=== PATIENT | male | born 1995 ===

== ENCOUNTER 2019-09-26 21:27 | Inpatient (IN) | payer MEDICAID ==
[~2019-09-26] VITALS: Ht 188 cm; Wt 72.4 kg
[2019-09-26] MEDS ORDERED: ZOLPIDEM TARTRATE 10 MG TABLET PO PRN (22:00)
[2019-09-26 22:05] VITALS: BP 132/84
[2019-09-26] MEDS ORDERED: OLAN7.5T2 PO (23:16)
[2019-09-27 00:43] VITALS: BP 112/78
[2019-09-27] MEDS ORDERED: INFLUENZA VIRUS VACCINE QVS 2019-20 (3YR+)/PF 60 MCG/0.5 ML SYRINGE IM ONE (00:45)
[2019-09-27 08:07] LABS: BASOPHILS % (AUTO) 0.8 % (0.0-2.0); EOSINOPHILS % (AUTO) 4.4 % (1.0-6.0); HEMOGLOBIN 13.5 g/dL (13.5-17.5); LYMPHOCYTES # (AUTO) 1.3 K/uL (1.0-4.8); LYMPHOCYTES % (AUTO) 38.3 % (22.0-44.0); MEAN CORPUSCULAR HGB CONC 33.9 G/dL (31.0-37.0); MEAN CORPUSCULAR VOLUME 89 fL (80-100); MONOCYTES # (AUTO) 0.4 K/uL (0.1-1.0); MONOCYTES % (AUTO) 11.5 % (2.0-9.0); NEUTROPHILS # (AUTO) 1.6 K/uL (1.8-7.7); PLATELET COUNT (AUTO) 211 K/uL (150-450); RED BLOOD CELL COUNT(AUTO) 4.52 MIL/uL (4.50-5.90); RED CELL DISTRIBUTION WIDTH 13.3 % (11.5-14.5)
[2019-09-27 08:18] LABS: HEMOGLOBIN A1C 5.4 % (4.5-6.2)
[2019-09-27 08:45] VITALS: BP 135/83
[2019-09-27 09:30] LABS: ALANINE AMINOTRANSFERASE 27 U/L (12-78); ALBUMIN 3.7 g/dL (3.4-5.0); ALKALINE PHOSPHATASE 88 U/L (46-116); ANION GAP 8 mmol/L (8-16); ASPARTATE AMINOTRANSFERASE 23 U/L (15-37); BILIRUBIN,TOTAL 0.4 mg/dL (0.1-1.0); CALCIUM, TOTAL 8.5 mg/dL (8.8-10.5); CARBON DIOXIDE 26 mmol/L (22-29); CHLORIDE 105 mmol/L (98-107); CHOL/HDL RATIO 2.7 (4.2-7.3); CHOLESTEROL 78 mg/dL (131-200); CREATININE 0.86 mg/dL (0.60-1.30); FREE T4 (FREE THYROXINE) 1.03 ng/dL (0.76-1.46); GLOMERULAR FILTR. RATE CALC > 60 mL/min (>60); GLUCOSE,RANDOM 88 mg/dL (70-110); HDL CHOLESTEROL 29 mg/dL (40-60); LDL CHOL (CALC.) 43 mg/dL (0-130); POTASSIUM 4.6 mmol/L (3.5-5.1); SODIUM SERUM 139 mmol/L (136-145); THYROID STIMULATING HORMONE 0.26 uIU/mL (0.36-3.74); TRIGLYCERIDES 31 mg/dL (15-150); UREA NITROGEN, BLOOD 13 mg/dL (7-18)
[2019-09-27] MEDS: LORazepam 2 MG TABLET PO PRN (09:49)
[2019-09-27] MEDS: OLANZapine 5 MG RAPDIS TABLET PO PRN (09:50)
[2019-09-27] MEDS ORDERED: MAG HYDROX/AL HYDROX/SIMETH ES 30 ML SUSPENSION UDCUP PO PRN (13:30)
[2019-09-27] MEDS ORDERED: TUBERCULIN, PURIFIED PROTEIN DERIVATIVE 5 TU/0.1 ML SYRINGE ID ONE (13:30)
[2019-09-27] MEDS ORDERED: MAGNESIUM HYDROXIDE SUSPENSION 30 ML UDCUP PO PRN (13:30)
[2019-09-27] MEDS ORDERED: LOPERAMIDE HCL 2 MG CAPSULE PO PRN (13:30)
[2019-09-27] MEDS ORDERED: HydrOXYzine PAMOATE 50 MG CAPSULE PO PRN (13:30)
[2019-09-27] MEDS ORDERED: PROMETHAZINE HCL 25 MG TABLET PO PRN (13:30)
[2019-09-27] MEDS ORDERED: GuaiFENesin/D-METHORPHAN [SUGAR-FREE] 200-20MG/10 ML SYRUP UDCUP PO PRN (13:30)
[2019-09-27] MEDS ORDERED: ACETAMINOPHEN 325 MG TABLET PO PRN (13:30)
[2019-09-27] MEDS ORDERED: BISACODYL 5 MG EC TABLET PO PRN (15:30)
[2019-09-27 16:00] VITALS: BP 120/64
[2019-09-27] MEDS: THIAMINE HCL 100 MG TABLET PO SCH (16:56)
[2019-09-27] MEDS: OLANZapine 10 MG TABLET PO SCH (20:28)
[2019-09-27] MEDS: DIVALPROEX SODIUM 500 MG ER TABLET PO SCH (20:28)
[2019-09-27] MEDS ORDERED: OLANZapine 7.5 MG TABLET PO SCH ×2 (21:00)
[2019-09-28 00:23] VITALS: BP 136/73
[2019-09-28] MEDS: LORazepam 2 MG TABLET PO PRN ×3 (03:03→16:40)
[2019-09-28] MEDS: OLANZapine 5 MG RAPDIS TABLET PO PRN ×2 (03:03→08:38)
[2019-09-28 08:05] VITALS: BP 140/91
[2019-09-28 08:06] LABS: HEMOGLOBIN A1C 5.4 % (4.5-6.2)
[2019-09-28 08:10] LABS: CHOL/HDL RATIO 2.9 (4.2-7.3); FREE T4 (FREE THYROXINE) 0.88 ng/dL (0.76-1.46); THYROID STIMULATING HORMONE 0.53 uIU/mL (0.36-3.74)
[2019-09-28] MEDS: NALTREXONE HCL 50 MG TABLET PO SCH (08:37)
[2019-09-28] MEDS: MULTIVITAMINS WITH MINERALS, THERAPEUTIC TABLET PO SCH (08:37)
[2019-09-28] MEDS: FOLIC ACID 1 MG TABLET PO SCH (08:37)
[2019-09-28] MEDS: THIAMINE HCL 100 MG TABLET PO SCH ×2 (08:38→16:40)
[2019-09-28] MEDS ORDERED: NALTREXONE HCL 50 MG TABLET PO SCH (09:00)
[2019-09-28 16:40] VITALS: BP 124/73
[2019-09-28] MEDS ORDERED: NALT50TA PO (17:03)
[2019-09-28] MEDS ORDERED: OLAN10TA20 PO (17:03)
[2019-09-28] MEDS ORDERED: DIVA500T52 PO (17:03)
[2019-09-28] MEDS: OLANZapine 10 MG TABLET PO SCH (20:47)
[2019-09-28] MEDS: DIVALPROEX SODIUM 500 MG ER TABLET PO SCH (20:47)
[2019-09-29 03:04] VITALS: BP 126/84
[2019-09-29 08:23] VITALS: BP 122/73
[2019-09-29] MEDS: MULTIVITAMINS WITH MINERALS, THERAPEUTIC TABLET PO SCH (08:28)
[2019-09-29] MEDS: NALTREXONE HCL 50 MG TABLET PO SCH (08:28)
[2019-09-29] MEDS: FOLIC ACID 1 MG TABLET PO SCH (08:28)
[2019-09-29] MEDS: THIAMINE HCL 100 MG TABLET PO SCH (09:23)
[2019-09-29] MEDS ORDERED: OLAN10TA3 PO (11:20)
[2019-09-29] MEDS ORDERED: NALT50TA6 PO (11:21)
[2019-09-29] MEDS ORDERED: DIVA-78 PO (11:21)
== END 2019-09-29 13:00 | disposition home or self-care (01) | DRG 751 ==
LOC: B3A 22:09
PROVIDERS: ADMIT Psychiatry & Neurology Psychiatry; ATTEND Psychiatry & Neurology Psychiatry
DX: F29 Unspecified psychosis not due to a substance or known physiological condition (principal); Z91.19 Patient's noncompliance with other medical treatment and regimen; K59.00 Constipation, unspecified; Z59.0 Homelessness
CPT/HCPCS: 83036; 84439; 84443; 86592